=== PATIENT | female | born 1995 | race Caucasian/White ===

== ENCOUNTER 2018-01-31 08:54 | Day surgery (SDC) | payer OTHER, SELFPAY ==
[2018-01-28 10:38] VITALS: BMI 19.6
[2018-01-31] VITALS (10 sets, daily range): BP systolic 106–133; BP diastolic 62–87; PULSE 71–112; RESP 12–20; TEMP 36.1–36.9; O2SAT 94–100; BMI 19.6
--- NOTE | 2018-01-31 | PATH_ITS ---
[facility] Accession Number: [id number] . 01 Material submitted: . RIGHT OVARIAN CYST . 01 Clinical history: . CYST . 02 Diagnosis: Specimen Designated Right Ovarian Cyst: Multiple fragments of ovarian tissue with large cystic hemorrhagic corpus luteum. Small multiple follicular cysts, negative for atypia. MRV/02/04/2018 . 02 Electronically signed: . Joseph Chairez MD, Pathologist NPI- [id number] . 01 Gross description: . Received in formalin, labeled 1-Right ovarian cyst, are multiple fragments of reddy-white solid firm and partially membranous tissue (5.2 x 3.0 x 0.5 cm in aggregate). Entirely submitted in cassettes A1 and A2. ([id number]) . /[facility] . 02 Pathologist provided ICD-10: N83.11 . 02 CPT . 805161 Performed at: 01 [facility] [address], [place], [place] [id number] MD Adarsh Sher MD Phone: [phone] Performed at: [address] [facility] [address] [place], [place] [id number] MD João Grijalva MD Phone: [phone]
[2018-01-31] MEDS: LACTATED RINGERS 1,000 ML 100 ML IV ×2 (09:28→10:41)
--- NOTE | 2018-01-31 09:45 | PM.GYNHP.1 ---
History of Present Illness Narrative: Lana Looney is a 22 year old 0 who presents for a diagnostic laparoscopy with possible fulguration of endometriosis secondary to severe dysmenorrhea [facility] Medical History Anemia (Acute) Anxiety (Acute) Depression (Acute) Dyspareunia (Acute) Gastric ulcer (Acute) Kidney stones (Acute) PTSD (post-traumatic stress disorder) (Acute) Seasonal allergies (Acute) [place] teeth extracted (Acute) Surgical History Status post colonoscopy Status post endoscopy Family History Brother Age: 23 Type 1 diabetes Father Age: 47 High cholesterol Grandfather Age: 74 Parkinson's disease Grandfather Age: 74 Cancer Social History marital status: Single household members: family Smoking Status: Never smoker alcohol intake: never Meds Home Medications Medication Instructions Recorded Confirmed Type cholecalciferol (vitamin D3) 50,000 unit PO QWEEK #0 06/07/17 01/31/18 History clonazepam 0.5 mg PO DIRECTED 01/31/18 01/31/18 History oxycodone-acetaminophen [Percocet] 1 tab PO Q4HP PRN 01/31/18 01/31/18 History Generic Name Dose Route Start Last Admin Trade Name Freq PRN Reason Stop Dose Admin Fentanyl 50 mcg 01/31/18 09:16 Sublimaze IV Q5MIN PRN Moderate Pain Hydromorphone HCl 0.5 mg 01/31/18 09:16 Dilaudid IV Q5MIN PRN Moderate Pain Lactated Ringer's 1,000 mls @ 100 mls/hr 01/31/18 09:15 01/31/18 09:28 Lactated Ringers IV 100 mls/hr CONT STEVAN Administration Meperidine HCl 25 mg 01/31/18 09:16 Demerol IV NOW PRN Moderate pain or shivering Meperidine HCl 25 mg 01/31/18 09:16 Demerol IV Q5MIN PRN Pain and shivering Oxycodone/Acetaminophen 1 tab 01/31/18 09:16 Percocet 5/325 PO Q30MIN PRN Mild or moderate pain Allergies Allergy/AdvReac Type Severity Reaction Status Date / Time No Known Drug Allergies Allergy Verified 01/31/18 09:29 Exam Vital Signs (past 8 hours): Vital Signs - 8 hr 01/31/18 09:09 Temperature 97.3 F L Pulse Rate 83 Respiratory Rate 16 Blood Pressure 113/74 Pulse Oximetry 100 Temperature 97.3 F Pulse Rate 83 Respiratory Rate 16 Blood Pressure 113/74 Pulse Oximetry 100 Oxygen Delivery Method Room Air Narrative Exam Narrative: Generally: A well-developed, well-nourished white female, no acute distress Lungs: Clear to auscultation bilaterally Cardiovascular: Regular rate and rhythm Abdomen: Soft, flat, good bowel sounds. No scars. No hepatosplenomegaly. No masses palpable. External genitalia: Normal labia minora and majora. Normal urethral meatus. Normal Bartholin's and [place]'s glands. Vagina: Normal Cervix: Nulliparous Bimanual exam: 6 week size anteverted uterus. No adnexal masses or tenderness. She does have tenderness along the uterosacral ligaments bilaterally. Assessment & Plan (1) Severe dysmenorrhea: Problem details: Assessment: 22-year-old 0 with severe dysmenorrhea Plan: Diagnostic laparoscopy with possible fulguration of endometriosis. The risks, benefits, and alternatives to the procedure were explained to the patient. The risks including bleeding, infection, injury to the bowel, bladder, or ureters. She understands these risks and agrees to proceed. A full capital P AR-Q was held and consent form was signed Current visit: Yes Status: Acute
--- NOTE | 2018-01-31 09:48 | P.HPOB_ITS ---
History of Present Illness Narrative: Lana Looney is a 22 year old 0 who presents for a diagnostic laparoscopy with possible fulguration of endometriosis secondary to severe dysmenorrhea [facility] Medical History Anemia (Acute) Anxiety (Acute) Depression (Acute) Dyspareunia (Acute) Gastric ulcer (Acute) Kidney stones (Acute) PTSD (post-traumatic stress disorder) (Acute) Seasonal allergies (Acute) [place] teeth extracted (Acute) Surgical History Status post colonoscopy Status post endoscopy Family History Brother Age: 23 Type 1 diabetes Father Age: 47 High cholesterol Grandfather Age: 74 Parkinson's disease Grandfather Age: 74 Cancer Social History marital status: Single household members: family Smoking Status: Never smoker alcohol intake: never Meds Home Medications Medication Instructions Recorded Confirmed Type cholecalciferol (vitamin D3) 50,000 unit PO QWEEK #0 06/07/17 01/31/18 History clonazepam 0.5 mg PO DIRECTED 01/31/18 01/31/18 History oxycodone-acetaminophen [Percocet] 1 tab PO Q4HP PRN 01/31/18 01/31/18 History Generic Name Dose Route Start Last Admin Trade Name Freq PRN Reason Stop Dose Admin Fentanyl 50 mcg 01/31/18 09:16 Sublimaze IV Q5MIN PRN Moderate Pain Hydromorphone HCl 0.5 mg 01/31/18 09:16 Dilaudid IV Q5MIN PRN Moderate Pain Lactated Ringer's 1,000 mls @ 100 mls/hr 01/31/18 09:15 01/31/18 09:28 Lactated Ringers IV 100 mls/hr CONT STEVAN Administration Meperidine HCl 25 mg 01/31/18 09:16 Demerol IV NOW PRN Moderate pain or shivering Meperidine HCl 25 mg 01/31/18 09:16 Demerol IV Q5MIN PRN Pain and shivering Oxycodone/Acetaminophen 1 tab 01/31/18 09:16 Percocet 5/325 PO Q30MIN PRN Mild or moderate pain Allergies Allergy/AdvReac Type Severity Reaction Status Date / Time No Known Drug Allergies Allergy Verified 01/31/18 09:29 Exam Vital Signs (past 8 hours): Vital Signs - 8 hr 01/31/18 09:09 Temperature 97.3 F L Pulse Rate 83 Respiratory Rate 16 Blood Pressure 113/74 Pulse Oximetry 100 Temperature 97.3 F Pulse Rate 83 Respiratory Rate 16 Blood Pressure 113/74 Pulse Oximetry 100 Oxygen Delivery Method Room Air Narrative Exam Narrative: Generally: A well-developed, well-nourished white female, no acute distress Lungs: Clear to auscultation bilaterally Cardiovascular: Regular rate and rhythm Abdomen: Soft, flat, good bowel sounds. No scars. No hepatosplenomegaly. No masses palpable. External genitalia: Normal labia minora and majora. Normal urethral meatus. Normal Bartholin's and [place]'s glands. Vagina: Normal Cervix: Nulliparous Bimanual exam: 6 week size anteverted uterus. No adnexal masses or tenderness. She does have tenderness along the uterosacral ligaments bilaterally. Assessment & Plan (1) Severe dysmenorrhea: Problem details: Assessment: 22-year-old 0 with severe dysmenorrhea Plan: Diagnostic laparoscopy with possible fulguration of endometriosis. The risks, benefits, and alternatives to the procedure were explained to the patient. The risks including bleeding, infection, injury to the bowel, bladder , or ureters. She understands these risks and agrees to proceed. A full capital P AR-Q was held and consent form was signed Current visit: Yes Status: Acute
[2018-01-31] MEDS: MIDAZOLAM 2 MG/2 ML VIAL IV (09:58)
[2018-01-31] MEDS: BUPIVACAINE 0.5% W/ EPI (PF) 30 ML VIAL INJ (10:24)
[2018-01-31] MEDS: fentaNYL 100 MCG/2 ML INJ 50 MCG IV ×3 (11:40→12:00)
[2018-01-31] MEDS: HYDROMORPHONE 0.5 MG SYRINGE IV (11:50)
[2018-01-31] MEDS: ONDANSETRON 4 MG/2 ML INJ IV (11:50)
[2018-01-31] MEDS: LORazepam 2 MG/ML SYRINGE 1 MG IV ×2 (11:51→11:56)
--- NOTE | 2018-01-31 11:54 | PM.PREOP ---
Pre-operative Note Interval Note Changes to the H&P: History and physical exam performed today. Pre-op Check: History & Physical Reviewed and Exam Performed
--- NOTE | 2018-01-31 13:11 | SUR.PHASEII ---
Report rec'd from ACCREDITED PHARMACY TECHNICIAN, multiple pain medications given in PACU along with Ativan for anxiety. Pt tearful, reports anxiety and states pain is 8/10 despite pain medications given in the PACU. Pt assessed, able to talk through some of the anxiety, baseline Phase II VS obtained and she is running a HR in low 110's d/t anxitey. Parents brought to the bedside, anxiety appeared to subside slightly, Mother gave Lana a snack and Percocet One tab was given in phase II. No nausea at this time, wounds checked, rafy pad checked and Pt will be able to discharge home soon.
--- NOTE | 2018-01-31 13:51 | SUR.PHASEII ---
1345: Pt up at bedside with Mother whom is assisting Pt to get dressed. Pt c/o increased pain with moving and dressing. Pt instructed on splinting for pain relief and encouraged use of prescription pain medications ordered by Dr Elaine. 1353: Pt up in BR with Mother, discharge instructions reviewed while Pt up in WC and all questions were answered. Pt escorted out to private vehicle with parents. Pt/family to set up post op appointment with Dr Elaine.
--- NOTE | 2018-02-18 20:52 | PM.GYNOP.1 ---
Operative Date/Time/Diagnoses - Date of procedure: 01/31/18 Time of procedure: 13:00 Pre-op diagnosis: Pelvic pain Severe dysmenorrhea Post-op diagnosis: same Procedure: Procedures Diagnostic laparoscopy Lysis of adhesions Fulguration of endometriosis Bore holes in the ovaries Excision of right ovarian endometrioma Operation Date: 01/31/18 10:15 Actual Procedures Side Surgeon p Laparoscopic Fulguration Endometriosis, Right Ovarian Cystectomy, BILATERAL OVARIAN DRILLING Lysis of Adhesions Not Applicable Kim Elaine MD Indications: Severe dysmenorrhea Pelvic pain Surgeon: Kim Elaine Anesthesia Type: General Operative Notes Findings: 6 week size anteverted uterus Endometriosis in bilateral ovarian fossa Left colon to pelvic sidewall adhesions Approximately 35 endometriotic lesion Polycystic ovaries bilaterally Large endometrioma on the right ovary Normal liver and gallbladder Normal appendix Closure Type: primary Specimen(s): none Estimated blood loss (mL): 5 Blood products transfused: none Procedure in detail: After informed consent was obtained, the patient was taken to the operating room where she was placed in the dorsal supine position. After adequate general endotracheal anesthesia was achieved, she was placed in the dorsal lithotomy position, and prepped and draped in the usual sterile fashion. A time-out was performed. A bivalve speculum was placed into the vagina, and the anterior lip of the cervix grasped with a single-tooth tenaculum. The cervical os was sequentially dilated until the Zumi uterine manipulator could pass easily into the endometrial cavity. The single-tooth tenaculum was removed from the anterior lip of the cervix, the bivalve speculum was removed from the vagina. Attention was then turned to the abdomen where 6 cc of 0.5% Marcaine with epinephrine were injected in the umbilical fold. A 5 mm incision was made. A Veress needle was placed into the peritoneal cavity, and its placement confirmed by aspiration and drop test. The abdominal cavity was insufflated with 4.1 L of CO2. The Veress needle was removed, and a 5 mm trocar was placed without difficulty. Additional inspection of the pelvis and abdomen revealed the upper abdomen findings as above. A 2nd incision was placed midway between the pubic symphysis and umbilicus on the left side after 6 cc of 0.5% Marcaine with epinephrine were injected. A 5 mm trocar was placed under direct visualization. A probe was used to identify both tubes and ovaries. There was a large endometrioma on the right ovary and a large endometriotic implant on the surface of the ovary. Both tubes appeared normal. There were endometriotic implants in the ovarian fossa bilaterally. There were adhesions between the left colon and the sidewall. There were endometriotic lesions in the anterior and posterior cul-de-sacs. A 3rd incision was placed above the pubic symphysis after 6 cc of 0.5% Marcaine with epinephrine were injected. A 3rd 5 mm trocar was placed. Using the J hook cautery, the endometriotic implants were cauterized. Care was taken to avoid the ureters. The right utero-ovarian ligament was grasped with an atraumatic grasper, an endometrioma was excised using the PlasmaKinetic was settings at 40 w. the J-hook was used to bore holes into the right ovary due to polycystic ovaries. The bore holes were repeated on the patient's left ovary. The J-hook was used to cauterize endometriotic implants on the left ovary. The Endo filomena were used to take down adhesions between the left colon and the pelvic sidewall, with care to avoid the ureters. The pelvis was copiously irrigated with warm normal saline. No bleeding was noted. The instruments were removed from the abdomen. The CO2 was allowed to escape. The incisions were repaired with 4 0 undyed Vicryl in a subcuticular fashion. Steri-Strips, 2 x 2, and op site were placed. The Zumi uterine manipulator was removed from the uterus. Sponge, lap, and instrument counts were correct x2. The patient tolerated the procedure well, was taken to PACU in stable condition. Complications: none Post-operative Condition: stable Disposition: PACU Plan for aftercare: To home after recovery
== END 2018-01-31 14:02 | disposition home or self-care (01) ==
PROVIDERS: Family Provider Family Medicine; PCP Family Medicine; Visit Provider Obstetrics & Gynecology
PROC: 0U5B4ZZ Destruction of Endometrium, Percutaneous Endoscopic Approach (ICD-10-PCS; CPT 58662; principal; 2018-01-31 10:15)
DX: N80.1 Endometriosis of ovary (principal); D50.9 Iron deficiency anemia, unspecified; F41.9 Anxiety disorder, unspecified; E28.2 Polycystic ovarian syndrome; N73.6 Female pelvic peritoneal adhesions (postinfective); N83.11 Corpus luteum cyst of right ovary
CPT/HCPCS: 58662; 58999; J1100; J1170; J2060; J2250; J2405; J2704; J3010

== ENCOUNTER 2020-07-19 13:00 | Outpatient (RCR) | payer OTHER, SELFPAY ==
--- NOTE | 2020-05-10 09:25 | PT.OIE ---
Current Diagnoses Vaginismus (05/04/20) Past Medical History (Last Reviewed 01/31/18 @ 09:45 by Kim Elaine MD) Anemia (Acute) Anxiety (Acute) Depression (Acute) Dyspareunia (Acute) Gastric ulcer (Acute) Kidney stones (Acute) PTSD (post-traumatic stress disorder) (Acute) Seasonal allergies (Acute) Past Surgical History (Last Updated 02/18/18 @ 15:27 by Luz Elena Rivas LPN) History of third molar tooth extraction (Deleted) S/P laparoscopic procedure (Resolved 01/31/18) Status post colonoscopy Status post endoscopy [place] teeth extracted (Acute) Visit Care Team Role Provider Type Cindy Haile DO Family Provider Non-Staff Primary Care Provider Specialty: Family Practice Address: [address], [place], [address] Email: JAZZY [place] Attending Provider Non-Staff Referring Provider Specialty: Nursing Address: [address] [place] [address], [place], [address] Email: Physical Therapy Initial Evaluation PT-OP-A Visit Information Start: 05/04/20 11:21 Freq: Status: Active Protocol: Document 05/04/20 15:45 [facility] (Rec: 05/04/20 16:02 [facility] [id number]) Out-Patient Physical Therapy Visit Information Visit Information Visit Type Initial Evaluation Visit Start Time 11:15 Visit Stop Time 12:00 Total Visit Minutes 45 Visit Number 1 Evaluation Information Evaluation Date 05/04/20 PT-OP-B Current Condition Start: 05/04/20 11:21 Freq: Status: Active Protocol: Document 05/04/20 15:45 [facility] (Rec: 05/04/20 16:02 [facility] [id number]) Current Condition History of Current Condition Onset Date Age 14 Current Complaints pelvic and abdominal pain and tightness History of Current Condition Lana is a 25 year old female who presents to PT with complaints of a chronic history of abdominal and pelvic pain and tightness. She has been diagnosed with endometriosis and underwent a laproscopic surgery with ablation 2 years ago. She is currently awaiting a second laproscopic surgery but this is not until December of 2020. Her complaints of pain started around 14 years of age with cramping and painful ovulation as well as pain in her lower abdominal wall. She has tried a low dose of control pills however this brought on depression with her so she is managing her symptoms at this point with diet and exercise. She describes painful intercourse, painful bowel movements, and pain with a full bladder. She has past medical history of a bleeding stomach ulcer so she is careful not to take any Ibuprofen. Treatment Goals Patient/Caregiver Goals Pt's goals are to reduce pain in her abdominal wall and pelvic floor, decrease pain intercourse and with bowel movements. PT-OP-C Subjective Start: 05/04/20 11:21 Freq: Status: Active Protocol: Document 05/04/20 15:45 [facility] (Rec: 05/04/20 16:02 [facility] [id number]) OP-PT Pain Assessment Pain Assessment Grid Paper Pain Assessment Grid Completed Yes Location diaphragm Pain Location Details pain in the diaphragm bilaterally distal to the rib cage Intensity 5 Scale Used Numeric (0 - 10) Description Spasm suprapubic region Pain Location Details pain in the suprapubic region Intensity 8 Scale Used Numeric (0 - 10) Comments Pain Comments pt describes her pain in the diaphragm region as tightness and she wonders if she has adhesions in this region PT-OP-I Pelvic Floor Start: 05/04/20 11:21 Freq: Status: Active Protocol: Document 05/04/20 15:45 [facility] (Rec: 05/04/20 16:02 [facility] [id number]) Pelvic Floor Assessment Urine Pelvic Floor Surgery No Other Urinary Symptoms Lana describes pain with a full bladder, no c/o leakage Pelvic Clock Pelvic Clock 12-3 Guarding Pelvic Clock 3-6 Guarding,Hypertonic Pelvic Clock 6-9 Guarding,Hypertonic Pelvic Clock 9-12 Guarding Contraction Ability Voluntary Contraction Moderate Voluntary Relaxation Weak Manual Muscle Testing Left 4 Manual Muscle Testing Right 4 Manual Muscle Testing Anterior 4 Manual Muscle Testing Posterior 4 Muscle Endurance (Seconds) 5 Comments Pelvic Floor Comments Lana has a strong pelvic floor contraction however she has difficulty relaxing her pelvic floor following a pelvic floor contraction. She is guarded and hypertonic especially from 3-6 and 6-9 on the pelvic clock. PT-OP-J Posture/Palpation/Skin Start: 05/04/20 11:21 Freq: Status: Active Protocol: Document 05/04/20 11:15 [facility] (Rec: 05/05/20 09:31 [facility] [id number]) Palpation Assessment Location pelvic clock Palpation Location pelvic clock Palpation Findings Muscle Guarding,Tenderness Palpation Details tenderness in all areas of the pelvic clock with guarding from 3-6 and 6-9 iliopsoas musculature Palpation Location tightness in bilateral iliopsoas proximal attachments Palpation Findings Soft Tissue Tightness suprapubic fascia Palpation Location subrapubic fascia Palpation Findings Soft Tissue Tightness,Muscle Guarding Palpation Details restricted tissue tightness of the suprapubic fascia PT-OP-Q Treatments Start: 05/04/20 11:21 Freq: Status: Active Protocol: Document 05/04/20 15:45 [facility] (Rec: 05/04/20 16:07 [facility] [id number]) Therapeutic Exercises Supine Exercises 2 Supine Exercise Name happy baby stretch 1 Supine Exercise Name diaphragmatic breathing instruction Comments pt educated on pelvic rhythm Manual Therapy Treatment Soft Tissue Mobilization 1 Body Location ILU self massage instruction Mobilization Type Myofascial Release PT-OP-T Assessment and Plan Start: 05/04/20 11:21 Freq: Status: Active Protocol: Document 05/04/20 11:15 [facility] (Rec: 05/05/20 09:33 [facility] [id number]) Physical Therapy Assessment Goals Three Impairment Hypertonicity of the levator ani musculature Aniline Press Worker Goal (LTG) With stretches, manual therapy techniques, EMG biofeedback for pelvic floor down training, Lana is able to improved the resting tone of her pelvic floor reducing overall tightness and spasm LTG Duration 8 weeks + Two Impairment Lana describes pain with a full bladder Retirement Goal (LTG) Lana is able to delay voiding to every 2.5 to 3 hours during the day with overall decreased c/o bladder pain LTG Duration 8 weeks One Impairment pelvic and abdominal pain rated 6-8/10 Aniline Press Worker Goal (LTG) Lana is educated in a home program with specific stretches for the pelvic floor , breathing techniques to relax the abdominal wall and improve diaphragm and pelvic rhythm, and self massage techniques for the abdominal wall. LTG Duration 8 weeks Assessment Summary Assessment Lana presents to physical therapy today with complaints of pelvic pain and lower abdominal pain. She reports increased pain with intercourse, bowel movements, and pain with a full bladder. Lana has a history of abdominal and pelvic pain that began when she started her menstrual cycle at age 14. She has been diagnosed with endometriosis and underwent a laproscopic surgery with ablation 2 years ago. She is scheduled for a additional surgery next December 2020. Her goals with Pt are to decrease pain and to learn new ways to decrease her pain without medication. She has a history of a bleeding ulcer and reports she is trying to avoid taking IBU for pain. With examination today Lana was very guarded and hypertonic in the levator ani musculature. She has trigger points in the lateral harrison from 3-6 and 6-9 on the pelvic clock. She is also guarded in the suprapubic fascia and surrounding the diaphragm. She was educated today in self massage for the abdominal wall and diaphragmatic breathing exercises. Lana is a good candidate for PT Physical Therapy Plan Frequency and Duration Frequency of Treatment 1x/Week Duration of Treatment 8 Plan of Care Start Date 05/04/20 Plan of Care End Date 06/29/20 Therapeutic Interventions Therapeutic Interventions Home Exercise Program,Manual Therapy,Neuromuscular Re- education,Patient/Caregiver Education,Self-Care/Home Management,Therapeutic Exercises Modalities Biofeedback Next Visit Focus/Plan Next Note Type Treatment Note Next Visit Plan Review diaphragmatic breathing and self abdominal massage, begin adding in stretches to address pelvic pain, MFR to the suprapubic fascia and posterior pelvic floor.
--- NOTE | 2020-05-10 09:27 | PT.OPPOC ---
Physical, Occupational & Speech Therapy At [facility] Current Diagnoses Vaginismus (05/04/20) Visit Care Team Role Provider Type Cindy Haile DO Family Provider Non-Staff Primary Care Provider Specialty: Family Practice Address: [address], [place], [address] Email: JAZZY Boston Attending Provider Non-Staff Referring Provider Specialty: Nursing Address: [address], [place], [address] Email: Plan Of Care PT-OP-T Assessment and Plan Start: 05/04/20 11:21 Freq: Status: Active Protocol: Document 05/04/20 11:15 [facility] (Rec: 05/05/20 09:33 [facility] [id number]) Physical Therapy Assessment Goals Three Impairment Hypertonicity of the levator ani musculature Longterm Goal (LTG) With stretches, manual therapy techniques, EMG biofeedback for pelvic floor down training, Lana is able to improved the resting tone of her pelvic floor reducing overall tightness and spasm LTG Duration 8 weeks + Two Impairment Lana describes pain with a full bladder Longterm Goal (LTG) Lana is able to delay voiding to every 2.5 to 3 hours during the day with overall decreased c/o bladder pain LTG Duration 8 weeks One Impairment pelvic and abdominal pain rated 6-8/10 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 LTG Duration 8 weeks Assessment Summary Assessment Lana presents to physical therapy today with complaints of pelvic pain and lower abdominal pain. She reports increased pain with intercourse, bowel movements, and pain with a full bladder. Lana has a history of abdominal and pelvic pain that began when she started her menstrual cycle at age 14. She has been diagnosed with endometriosis and underwent a laproscopic surgery with ablation 2 years ago. She is scheduled for a additional surgery next December 2020. Her goals with PT are to decrease pain and to learn new ways to decrease her pain without medication. She has a history of a bleeding ulcer and reports she is trying to avoid taking IBU for pain. With examination today Lana was very guarded and hypertonic in the levator ani musculature. She has trigger points in the lateral harrison from 3-6 and 6-9 on the pelvic clock. She is also guarded in the suprapubic fascia and surrounding the diaphragm. She was educated today in self massage for the abdominal wall and diaphragmatic breathing exercises. Lana is a good candidate for PT Physical Therapy Plan Frequency and Duration Frequency of Treatment 1x/Week Duration of Treatment 8 Plan of Care Start Date 05/04/20 Plan of Care End Date 06/29/20 Therapeutic Interventions Therapeutic Interventions Home Exercise Program,Manual Therapy,Neuromuscular Re- education,Patient/Caregiver Education,Self-Care/Home Management,Therapeutic Exercises Modalities Biofeedback Next Visit Focus/Plan Next Note Type Treatment Note Next Visit Plan Review diaphragmatic breathing and self abdominal massage, begin adding in stretches to address pelvic pain, MFR to the suprapubic fascia and posterior pelvic floor. Plan of Care Dates Plan of Care Start Date 05/04/20 Plan of Care End Date 06/29/20 Electronically Signed by: Daria Gong, PT 05/10/20 0954 Please Sign and Return: I have reviewed this Plan of Care and certify that the skilled therapy services above are required to meet the patient?s needs. Physician Signature Date Printed Name and Credentials Clinical Instructor Signature Printed Name and Credentials
--- NOTE | 2020-05-12 11:35 | PT.OTN ---
Current Diagnoses Vaginismus (05/12/20) Physical Therapy Treatment Note PT-OP-A Visit Information Start: 05/04/20 11:21 Freq: Status: Active Protocol: Document 05/12/20 11:26 [facility] (Rec: 05/12/20 11:35 [facility] [id number]) Out-Patient Physical Therapy Visit Information Visit Information Visit Type Treatment Note Visit Start Time 09:00 Visit Stop Time 09:45 Total Visit Minutes 45 Visit Number 2 PT-OP-B Current Condition Start: 05/04/20 11:21 Freq: Status: Active Protocol: Document 05/04/20 15:45 [facility] (Rec: 05/04/20 16:02 [facility] [id number]) Current Condition History of Current Condition Onset Date Age 14 Current Complaints pelvic and abdominal pain and tightness History of Current Condition Lana is a 25 year old female who presents to PT with complaints of a chronic hisotry of abdominal and pelvic pain and tightness. She has been diagnosed with endometriosis and underwent a laproscopic surgery with ablation 2 years ago. She is currently awaiting a second laproscopic surgery but this is not until December of 2020. Her complaints of pain started around 14 years of age with cramping and painful ovulation as well as pain in her lower abdominal wall. She has tried a low dose of control pills however this brought on depression with her so she is managing her symptoms at this point with diet and exercise. She describes painful intercourse, painful bowel movements, and pain with a full bladder. She has past medical history of a bleeding stomach ulcer so she is careful not to take any Ibuprofen. Treatment Goals Patient/Caregiver Goals Pt's goals are to reduce pain in her abdominal wall and pelvic floor, decrease pain intercourse and with bowel movements. PT-OP-C Subjective Start: 05/04/20 11:21 Freq: Status: Active Protocol: Document 05/12/20 11:26 [facility] (Rec: 05/12/20 11:35 [facility] [id number]) OP-PT Subjective Patient Comments Patient Comments Lana reports she has been working on her diaphragmatic breathing and happy baby stretch. She also notes she can tell that she keeps her gluteal muscles tight in standing positions PT-OP-I Pelvic Floor Start: 05/04/20 11:21 Freq: Status: Active Protocol: Document 05/04/20 15:45 [facility] (Rec: 05/04/20 16:02 [facility] [id number]) Pelvic Floor Assessment Urine Pelvic Floor Surgery No Other Urinary Symptoms Lana describes pain with a full bladder, no c/o leakage Pelvic Clock Pelvic Clock 12-3 Guarding Pelvic Clock 3-6 Guarding,Hypertonic Pelvic Clock 6-9 Guarding,Hypertonic Pelvic Clock 9-12 Guarding Contraction Ability Voluntary Contraction Moderate Voluntary Relaxation Weak Manual Muscle Testing Left 4 Manual Muscle Testing Right 4 Manual Muscle Testing Anterior 4 Manual Muscle Testing Posterior 4 Muscle Endurance (Seconds) 5 Comments Pelvic Floor Comments Lana has a strong pelvic floor contraction however she has difficulty relaxing her pelvic floor following a pelvic floor contraction. She is guarded and hypertonic especially from 3-6 and 6-9 on the pelvic clock. PT-OP-J Posture/Palpation/Skin Start: 05/04/20 11:21 Freq: Status: Active Protocol: Document 05/04/20 11:15 [facility] (Rec: 05/05/20 09:31 [facility] [id number]) Palpation Assessment Location pelvic clock Palpation Location pelvic clock Palpation Findings Muscle Guarding,Tenderness Palpation Details tenderness in all areas of the pelvic clock with guarding from 3-6 and 6-9 iliopsoas musculature Palpation Location tightness in bilateral iliopsoas proximal attachments Palpation Findings Soft Tissue Tightness suprapubic fascia Palpation Location subrapubic fascia Palpation Findings Soft Tissue Tightness,Muscle Guarding Palpation Details restricted tissue tightness of the suprapubic fascia PT-OP-Q Treatments Start: 05/04/20 11:21 Freq: Status: Active Protocol: Document 05/12/20 11:26 [facility] (Rec: 05/12/20 11:35 [facility] [id number]) Therapeutic Exercises Supine Exercises 4 Supine Exercise Name supine over ball stretch Comments to stretch the abdominal wall and suprapubic fascia 3 Supine Exercise Name supine stretch over the foam roll Comments to open up the anterior chest and decrease tightness in the diaphragm 2 Supine Exercise Name happy baby stretch 1 Supine Exercise Name diaphragmatic breathing instruction Comments pt educated on pelvic rythym Manual Therapy Treatment Soft Tissue Mobilization 3 Body Location manual release under the right side of the diaphragm 2 Body Location visceral mobilizations for the bladder 1 Body Location abdominal massage over the colon and abdominal fascia Body Position Hooklying PT-OP-T Assessment and Plan Start: 05/04/20 11:21 Freq: Status: Active Protocol: Document 05/12/20 11:26 [facility] (Rec: 05/12/20 11:35 [facility] [id number]) Physical Therapy Assessment Assessment Summary Assessment Lana did feel quite a bit of pectoralis tightness with the foam roll. She was educated on how postural tightness can be contributing to pain in her abdominal wall and pelvic floor. She demonstrated good ability to perform diaphragmatic breathing, right side of the disphragm is tighter than the left side. Physical Therapy Plan Next Visit Focus/Plan Next Note Type Treatment Note Next Visit Plan Begin working on pelvic floor relaxation with manual therapy techniques and EMG biofeedback for resting tone of the pelvic floor
--- NOTE | 2020-05-26 17:02 | PT.OTN ---
Current Diagnoses Vaginismus (05/26/20) Physical Therapy Treatment Note PT-OP-A Visit Information Start: 05/04/20 11:21 Freq: Status: Active Protocol: Document 05/26/20 10:30 [facility] (Rec: 05/26/20 10:34 [facility] [id number]) Out-Patient Physical Therapy Visit Information Visit Information Visit Type Treatment Note Visit Start Time 10:30 Visit Stop Time 11:15 Total Visit Minutes 45 Visit Number 3 PT-OP-B Current Condition Start: 05/04/20 11:21 Freq: Status: Active Protocol: Document 05/04/20 15:45 [facility] (Rec: 05/04/20 16:02 [facility] [id number]) Current Condition History of Current Condition Onset Date Age 14 Current Complaints pelvic and abdominal pain and tightness History of Current Condition Lana is a 25 year old female who presents to PT with complaints of a chronic hisotry of abdominal and pelvic pain and tightness. She has been diagnosed with endometriosis and underwent a laproscopic surgery with ablation 2 years ago. She is currently awaiting a second laproscopic surgery but this is not until December of 2020. Her complaints of pain started around 14 years of age with cramping and painful ovulation as well as pain in her lower abdominal wall. She has tried a low dose of control pills however this brought on depression with her so she is managing her symptoms at this point with diet and exercise. She describes painful intercourse, painful bowel movements, and pain with a full bladder. She has past medical history of a bleeding stomach ulcer so she is careful not to take any Ibuprofen. Treatment Goals Patient/Caregiver Goals Pt's goals are to reduce pain in her abdominal wall and pelvic floor, decrease pain intercourse and with bowel movements. PT-OP-C Subjective Start: 05/04/20 11:21 Freq: Status: Active Protocol: Document 05/26/20 10:30 [facility] (Rec: 05/26/20 10:34 [facility] [id number]) OP-PT Subjective Patient Comments Patient Comments Has been doing the stretches, just had her cycle it ended yesterday. It was the best period she has had in a long time, the least amount of pain . She felt like she was actulally able to have some of her cycle on her pad and not just on the toilet. Patient Reported Progress Improving PT-OP-I Pelvic Floor Start: 05/04/20 11:21 Freq: Status: Active Protocol: Document 05/04/20 15:45 [facility] (Rec: 05/04/20 16:02 [facility] [id number]) Pelvic Floor Assessment Urine Pelvic Floor Surgery No Other Urinary Symptoms Lana describes pain with a full bladder, no c/o leakage Pelvic Clock Pelvic Clock 12-3 Guarding Pelvic Clock 3-6 Guarding,Hypertonic Pelvic Clock 6-9 Guarding,Hypertonic Pelvic Clock 9-12 Guarding Contraction Ability Voluntary Contraction Moderate Voluntary Relaxation Weak Manual Muscle Testing Left 4 Manual Muscle Testing Right 4 Manual Muscle Testing Anterior 4 Manual Muscle Testing Posterior 4 Muscle Endurance (Seconds) 5 Comments Pelvic Floor Comments Lana has a strong pelvic floor contraction however she has difficulty relaxing her pelvic floor following a pelvic floor contraction. She is guarded and hypertonic especially from 3-6 and 6-9 on the pelvic clock. PT-OP-J Posture/Palpation/Skin Start: 05/04/20 11:21 Freq: Status: Active Protocol: Document 05/04/20 11:15 [facility] (Rec: 05/05/20 09:31 [facility] [id number]) Palpation Assessment Location pelvic clock Palpation Location pelvic clock Palpation Findings Muscle Guarding,Tenderness Palpation Details tenderness in all areas of the pelvic clock with guarding from 3-6 and 6-9 iliopsoas musculature Palpation Location tightness in bilateral iliopsoas proximal attachments Palpation Findings Soft Tissue Tightness suprapubic fascia Palpation Location subrapubic fascia Palpation Findings Soft Tissue Tightness,Muscle Guarding Palpation Details restricted tissue tightness of the suprapubic fascia PT-OP-Q Treatments Start: 05/04/20 11:21 Freq: Status: Active Protocol: Document 05/26/20 16:54 [facility] (Rec: 05/26/20 17:01 [facility] [id number]) Manual Therapy Treatment Soft Tissue Mobilization levator ani release Body Location levator ani Comments release of the coccygeus and iliococcygeus bilaterally 3 Body Location manual release under the right side of the diaphragm 2 Body Location visceral mobilizations for the bladder 1 Body Location abdominal massage over the colon and abdominal fascia Body Position Hooklying Neuro Re-Education Treatment Other Activities EMG biofeedback Details EMG biofeedback Comments down training of the pelvic floor initiated today. Also tried roll outs to help with dropping the pelvic floor. Her resting tone was around a 4 but dropped as low as a 2 PT-OP-T Assessment and Plan Start: 05/04/20 11:21 Freq: Status: Active Protocol: Document 05/26/20 16:54 [facility] (Rec: 05/26/20 17:01 [facility] [id number]) Physical Therapy Assessment Assessment Summary Assessment Lana doing better and had a cycle that was not as painful. She has been working on her stretches. I initiated manual release on the pelvic floor today with pt consent. We also began EMG biofeedback for relaxed awareness of the pelvic floor. Lana tolerated this well. She had difficulty dropping below 3.5- 4 uv Physical Therapy Plan Frequency and Duration Frequency of Treatment 1x/Week Duration of Treatment 8 Plan of Care Start Date 05/04/20 Plan of Care End Date 06/29/20 Therapeutic Interventions Therapeutic Interventions Home Exercise Program,Manual Therapy,Neuromuscular Re- education,Patient/Caregiver Education,Self-Care/Home Management,Therapeutic Exercises Modalities Biofeedback Next Visit Focus/Plan Next Note Type Treatment Note Next Visit Plan continue working on pelvic floor relaxation with manual therapy techniques and EMG biofeedback for decreased resting tone of the pelvic floor.
--- NOTE | 2020-06-07 18:18 | PT.OTN ---
Current Diagnoses Vaginismus (06/07/20) Physical Therapy Treatment Note PT-OP-A Visit Information Start: 05/04/20 11:21 Freq: Status: Active Protocol: Document 06/07/20 18:08 [facility] (Rec: 06/07/20 18:16 [facility] [id number]) Out-Patient Physical Therapy Visit Information Visit Information Visit Type Treatment Note Visit Start Time 16:00 Visit Stop Time 16:45 Total Visit Minutes 45 Visit Number 4 PT-OP-B Current Condition Start: 05/04/20 11:21 Freq: Status: Active Protocol: Document 05/04/20 15:45 [facility] (Rec: 05/04/20 16:02 [facility] [id number]) Current Condition History of Current Condition Onset Date Age 14 Current Complaints pelvic and abdominal pain and tightness History of Current Condition Lana is a 25 year old female who presents to PT with complaints of a chronic hisotry of abdominal and pelvic pain and tightness. She has been diagnosed with endometriosis and underwent a laproscopic surgery with ablation 2 years ago. She is currently awaiting a second laproscopic surgery but this is not until December of 2020. Her complaints of pain started around 14 years of age with cramping and painful ovulation as well as pain in her lower abdominal wall. She has tried a low dose of control pills however this brought on depression with her so she is managing her symptoms at this point with diet and exercise. She describes painful intercourse, painful bowel movements, and pain with a full bladder. She has past medical history of a bleeding stomach ulcer so she is careful not to take any Ibuprofen. Treatment Goals Patient/Caregiver Goals Pt's goals are to reduce pain in her abdominal wall and pelvic floor, decrease pain intercourse and with bowel movements. PT-OP-C Subjective Start: 05/04/20 11:21 Freq: Status: Active Protocol: Document 06/07/20 16:12 [facility] (Rec: 06/07/20 16:15 [facility] [id number]) OP-PT Subjective Patient Comments Patient Comments Lana reports she was sore around her sacrum. following last visit. She has been really stressed this past week . SHe is moving and is getting her house on the market now. PT-OP-I Pelvic Floor Start: 05/04/20 11:21 Freq: Status: Active Protocol: Document 05/04/20 15:45 [facility] (Rec: 05/04/20 16:02 [facility] [id number]) Pelvic Floor Assessment Urine Pelvic Floor Surgery No Other Urinary Symptoms Lana describes pain with a full bladder, no c/o leakage Pelvic Clock Pelvic Clock 12-3 Guarding Pelvic Clock 3-6 Guarding,Hypertonic Pelvic Clock 6-9 Guarding,Hypertonic Pelvic Clock 9-12 Guarding Contraction Ability Voluntary Contraction Moderate Voluntary Relaxation Weak Manual Muscle Testing Left 4 Manual Muscle Testing Right 4 Manual Muscle Testing Anterior 4 Manual Muscle Testing Posterior 4 Muscle Endurance (Seconds) 5 Comments Pelvic Floor Comments Lana has a strong pelvic floor contraction however she has difficulty relaxing her pelvic floor following a pelvic floor contraction. She is guarded and hypertonic especially from 3-6 and 6-9 on the pelvic clock. PT-OP-J Posture/Palpation/Skin Start: 05/04/20 11:21 Freq: Status: Active Protocol: Document 05/04/20 11:15 [facility] (Rec: 05/05/20 09:31 [facility] [id number]) Palpation Assessment Location pelvic clock Palpation Location pelvic clock Palpation Findings Muscle Guarding,Tenderness Palpation Details tenderness in all areas of the pelvic clock with guarding from 3-6 and 6-9 iliopsoas musculature Palpation Location tightness in bilateral iliopsoas proximal attachments Palpation Findings Soft Tissue Tightness suprapubic fascia Palpation Location subrapubic fascia Palpation Findings Soft Tissue Tightness,Muscle Guarding Palpation Details restricted tissue tightness of the suprapubic fascia PT-OP-Q Treatments Start: 05/04/20 11:21 Freq: Status: Active Protocol: Document 06/07/20 18:08 [facility] (Rec: 06/07/20 18:16 [facility] [id number]) Therapeutic Exercises Standing Exercises standing adductor stretch Standing Exercise Name standing adductor stretch goddess pose Standing Exercise Name goddess pose Manual Therapy Treatment Soft Tissue Mobilization 3 Body Location manual release under the right side of the diaphragm 2 Body Location visceral mobilizations for the bladder 1 Body Location abdominal massage over the colon and abdominal fascia Body Position Hooklying Manual Techniques manual iliopsoas stretch Type manual iliopsoas stretch PT-OP-T Assessment and Plan Start: 05/04/20 11:21 Freq: Status: Active Protocol: Document 06/07/20 18:08 [facility] (Rec: 06/07/20 18:16 [facility] [id number]) Physical Therapy Assessment Assessment Summary Assessment Lana notes she is moving and is has been stressful for her this past week. She feels she holds tension in her muscles and can tell she is tighter this week Physical Therapy Plan Frequency and Duration Frequency of Treatment 1x/Week Duration of Treatment 8 Plan of Care Start Date 05/04/20 Plan of Care End Date 06/29/20 Therapeutic Interventions Therapeutic Interventions Home Exercise Program,Manual Therapy,Neuromuscular Re- education,Patient/Caregiver Education,Self-Care/Home Management,Therapeutic Exercises Modalities Biofeedback Next Visit Focus/Plan Next Note Type Treatment Note Next Visit Plan continue working on pelvic floor relaxation with manual therapy techniques and EMG biofeedback for decreased resting tone of the pelvic floor.
--- NOTE | 2020-06-28 17:06 | PT.OTN ---
Current Diagnoses Vaginismus (06/28/20) Physical Therapy Treatment Note PT-OP-A Visit Information Start: 05/04/20 11:21 Freq: Status: Active Protocol: Document 06/28/20 13:13 [facility] (Rec: 06/28/20 13:15 [facility] [id number]) Out-Patient Physical Therapy Visit Information Visit Information Visit Type Treatment Note Visit Start Time 13:05 Visit Stop Time 13:45 Total Visit Minutes 40 Visit Number 5 PT-OP-B Current Condition Start: 05/04/20 11:21 Freq: Status: Active Protocol: Document 05/04/20 15:45 [facility] (Rec: 05/04/20 16:02 [facility] [id number]) Current Condition History of Current Condition Onset Date Age 14 Current Complaints pelvic and abdominal pain and tightness History of Current Condition Lana is a 25 year old female who presents to PT with complaints of a chronic hisotry of abdominal and pelvic pain and tightness. She has been diagnosed with endometriosis and underwent a laproscopic surgery with ablation 2 years ago. She is currently awaiting a second laproscopic surgery but this is not until December of 2020. Her complaints of pain started around 14 years of age with cramping and painful ovulation as well as pain in her lower abdominal wall. She has tried a low dose of control pills however this brought on depression with her so she is managing her symptoms at this point with diet and exercise. She describes painful intercourse, painful bowel movements, and pain with a full bladder. She has past medical history of a bleeding stomach ulcer so she is careful not to take any Ibuprofen. Treatment Goals Patient/Caregiver Goals Pt's goals are to reduce pain in her abdominal wall and pelvic floor, decrease pain intercourse and with bowel movements. PT-OP-C Subjective Start: 05/04/20 11:21 Freq: Status: Active Protocol: Document 06/28/20 13:13 [facility] (Rec: 06/28/20 13:15 [facility] [id number]) OP-PT Subjective Patient Comments Patient Comments Lana reports her cycle started last week and was really painful. She missed about 5 days due to her pain. PT-OP-I Pelvic Floor Start: 05/04/20 11:21 Freq: Status: Active Protocol: Document 05/04/20 15:45 [facility] (Rec: 05/04/20 16:02 [facility] [id number]) Pelvic Floor Assessment Urine Pelvic Floor Surgery No Other Urinary Symptoms Lana describes pain with a full bladder, no c/o leakage Pelvic Clock Pelvic Clock 12-3 Guarding Pelvic Clock 3-6 Guarding,Hypertonic Pelvic Clock 6-9 Guarding,Hypertonic Pelvic Clock 9-12 Guarding Contraction Ability Voluntary Contraction Moderate Voluntary Relaxation Weak Manual Muscle Testing Left 4 Manual Muscle Testing Right 4 Manual Muscle Testing Anterior 4 Manual Muscle Testing Posterior 4 Muscle Endurance (Seconds) 5 Comments Pelvic Floor Comments Lana has a strong pelvic floor contraction however she has difficulty relaxing her pelvic floor following a pelvic floor contraction. She is guarded and hypertonic especially from 3-6 and 6-9 on the pelvic clock. PT-OP-J Posture/Palpation/Skin Start: 05/04/20 11:21 Freq: Status: Active Protocol: Document 05/04/20 11:15 [facility] (Rec: 05/05/20 09:31 [facility] [id number]) Palpation Assessment Location pelvic clock Palpation Location pelvic clock Palpation Findings Muscle Guarding,Tenderness Palpation Details tenderness in all areas of the pelvic clock with guarding from 3-6 and 6-9 iliopsoas musculature Palpation Location tightness in bilateral iliopsoas proximal attachments Palpation Findings Soft Tissue Tightness suprapubic fascia Palpation Location subrapubic fascia Palpation Findings Soft Tissue Tightness,Muscle Guarding Palpation Details restricted tissue tightness of the suprapubic fascia PT-OP-Q Treatments Start: 05/04/20 11:21 Freq: Status: Active Protocol: Document 06/28/20 17:03 [facility] (Rec: 06/28/20 17:06 [facility] [id number]) Therapeutic Exercises Supine Exercises 2 Supine Exercise Name happy baby stretch 1 Supine Exercise Name diaphragmatic breathing instruction Comments pt educated on pelvic rythym Other Exercises elizabeth pose Other Exercise Name elizabeth pose Reps/Minutes x 10 reps cat cow Other Exercise Name cat cow Reps/Minutes x 10 reps Manual Therapy Treatment Soft Tissue Mobilization 3 Body Location manual release under the right side of the diaphragm 2 Body Location visceral mobilizations for the bladder 1 Body Location abdominal massage over the colon and abdominal fascia Body Position Hooklying PT-OP-T Assessment and Plan Start: 05/04/20 11:21 Freq: Status: Active Protocol: Document 06/28/20 17:03 [facility] (Rec: 06/28/20 17:06 [facility] [id number]) Physical Therapy Assessment Assessment Summary Assessment Lana has one more visit scheduled. She would benefit from reviewing her EMG biofeedback next visit to look at the resting tone of her pelvic floor muscles. Physical Therapy Plan Frequency and Duration Frequency of Treatment 1x/Week Duration of Treatment 8 Plan of Care Start Date 05/04/20 Plan of Care End Date 06/29/20 Next Visit Focus/Plan Next Note Type Treatment Note Next Visit Plan revisit EMG biofeedback next visit to look at resting tone of the pelvic floor
--- NOTE | 2020-07-05 16:36 | PT.OPPN ---
Current Diagnoses Vaginismus (07/05/20) Physical Therapy Progress Note PT-OP-A Visit Information Start: 05/04/20 11:21 Freq: Status: Active Protocol: Document 07/05/20 13:02 [facility] (Rec: 07/05/20 13:04 [facility] [id number]) Out-Patient Physical Therapy Visit Information Visit Information Visit Type Progress Note Visit Start Time 13:03 Visit Stop Time 13:45 Total Visit Minutes 42 Visit Number 6 PT-OP-B Current Condition Start: 05/04/20 11:21 Freq: Status: Active Protocol: Document 05/04/20 15:45 [facility] (Rec: 05/04/20 16:02 [facility] [id number]) Current Condition History of Current Condition Onset Date Age 14 Current Complaints pelvic and abdominal pain and tightness History of Current Condition Lana is a 25 year old female who presents to PT with complaints of a chronic hisotry of abdominal and pelvic pain and tightness. She has been diagnosed with endometriosis and underwent a laproscopic surgery with ablation 2 years ago. She is currently awaiting a second laproscopic surgery but this is not until December of 2020. Her complaints of pain started around 14 years of age with cramping and painful ovulation as well as pain in her lower abdominal wall. She has tried a low dose of control pills however this brought on depression with her so she is managing her symptoms at this point with diet and exercise. She describes painful intercourse, painful bowel movements, and pain with a full bladder. She has past medical history of a bleeding stomach ulcer so she is careful not to take any Ibuprofen. Treatment Goals Patient/Caregiver Goals Pt's goals are to reduce pain in her abdominal wall and pelvic floor, decrease pain intercourse and with bowel movements. PT-OP-C Subjective Start: 05/04/20 11:21 Freq: Status: Active Protocol: Document 07/05/20 13:02 [facility] (Rec: 07/05/20 13:04 [facility] [id number]) OP-PT Subjective Patient Comments Patient Comments Lana reports she feels like she is ovulating this week and has low abdominal aching. She has been doing her stretching. PT-OP-I Pelvic Floor Start: 05/04/20 11:21 Freq: Status: Active Protocol: Document 07/05/20 16:35 [facility] (Rec: 07/05/20 16:36 [facility] [email or web address]) Pelvic Floor Assessment Contraction Ability Voluntary Contraction Moderate Voluntary Relaxation Weak Manual Muscle Testing Left 4 Manual Muscle Testing Right 4 Manual Muscle Testing Anterior 4 Manual Muscle Testing Posterior 4 Muscle Endurance (Seconds) 5 PT-OP-J Posture/Palpation/Skin Start: 05/04/20 11:21 Freq: Status: Active Protocol: Document 07/05/20 16:35 [facility] (Rec: 07/05/20 16:36 [facility] [email or web address]) Palpation Assessment Location pelvic clock Palpation Location pelvic clock Palpation Findings Muscle Guarding,Tenderness Palpation Details tenderness in all areas of the pelvic clock with guarding from 3-6 and 6-9 suprapubic fascia Palpation Location subrapubic fascia Palpation Findings Soft Tissue Tightness,Muscle Guarding Palpation Details restricted tissue tightness of the suprapubic fascia PT-OP-T Assessment and Plan Start: 05/04/20 11:21 Freq: Status: Active Protocol: Document 07/05/20 16:22 [facility] (Rec: 07/05/20 16:34 [facility] [email or web address]) Physical Therapy Assessment Goals Three Impairment Hypertonicity of the levator ani musculature Auto Parker Goal (LTG) With stretches, manual therapy techniques, EMG biofeedback for pelvic floor downtraining, Lana is able to improved the resting tone of her pelvic floor reducing overall tightness and spasm Lana is still showing guarding of the levator ani musculature. She was given a dilator for home trigger point release LTG Duration 8 weeks + Two Impairment Lana describes pain with a full bladder Auto Parker Goal (LTG) Lana is able to delay voiding to every 2.5 to 3 hours during the day with overall decreased c/o bladder pain Some progress LTG Duration 8 weeks One Impairment pelvic and abdominal pain rated 6-8/10 Half-Way Goal (LTG) Lana is educated in a home program with specific stretches for the pelvic floor , breathing techniques to relax the abdominal wall and improve diaphragm and pelvic rhythm, and self massage techniques for the abdominal wall. Lana has had a menstration cycle where she did better and did not feel as painful, she recently has had increase stress from moving home locations and it seems she is flared again with the stress. LTG Duration 8 weeks Assessment Summary Assessment Lana was given a dilator for home and instructed in how to do self release of the pelvic floor. She was elevated with her resting tone today at 5 uv initially. She did drop down some with breathing and contract relax. With internal release she was guarded in the illiococcygeus B Physical Therapy Plan Frequency and Duration Frequency of Treatment 1x/Week Duration of Treatment 8 Plan of Care Start Date 07/05/20 Plan of Care End Date 08/30/20 Therapeutic Interventions Therapeutic Interventions Home Exercise Program,Manual Therapy,Neuromuscular Re- education,Patient/Caregiver Education,Self-Care/Home Management,Therapeutic Exercises Modalities Biofeedback Next Visit Focus/Plan Next Note Type Treatment Note Next Visit Plan continue working on pelvic floor relaxation with manual therapy techniques and EMG biofeedback for decreased resting tone of the pelvic floor.
--- NOTE | 2020-07-05 16:36 | PT.OPPN ---
Current Diagnoses Vaginismus (07/05/20) Physical Therapy Progress Note PT-OP-A Visit Information Start: 05/04/20 11:21 Freq: Status: Active Protocol: Document 07/05/20 13:02 [facility] (Rec: 07/05/20 13:04 [facility] [id number]) Out-Patient Physical Therapy Visit Information Visit Information Visit Type Progress Note Visit Start Time 13:03 Visit Stop Time 13:45 Total Visit Minutes 42 Visit Number 6 PT-OP-B Current Condition Start: 05/04/20 11:21 Freq: Status: Active Protocol: Document 05/04/20 15:45 [facility] (Rec: 05/04/20 16:02 [facility] [id number]) Current Condition History of Current Condition Onset Date Age 14 Current Complaints pelvic and abdominal pain and tightness History of Current Condition Lana is a 25 year old female who presents to PT with complaints of a chronic hisotry of abdominal and pelvic pain and tightness. She has been diagnosed with endometriosis and underwent a laproscopic surgery with ablation 2 years ago. She is currently awaiting a second laproscopic surgery but this is not until December of 2020. Her complaints of pain started around 14 years of age with cramping and painful ovulation as well as pain in her lower abdominal wall. She has tried a low dose of control pills however this brought on depression with her so she is managing her symptoms at this point with diet and exercise. She describes painful intercourse, painful bowel movements, and pain with a full bladder. She has past medical history of a bleeding stomach ulcer so she is careful not to take any Ibuprofen. Treatment Goals Patient/Caregiver Goals Pt's goals are to reduce pain in her abdominal wall and pelvic floor, decrease pain intercourse and with bowel movements. PT-OP-C Subjective Start: 05/04/20 11:21 Freq: Status: Active Protocol: Document 07/05/20 13:02 [facility] (Rec: 07/05/20 13:04 [facility] [id number]) OP-PT Subjective Patient Comments Patient Comments Lana reports she feels like she is ovulating this week and has low abdominal aching. She has been doing her stretching. PT-OP-I Pelvic Floor Start: 05/04/20 11:21 Freq: Status: Active Protocol: Document 07/05/20 16:35 [facility] (Rec: 07/05/20 16:36 [facility] [email or web address]) Pelvic Floor Assessment Contraction Ability Voluntary Contraction Moderate Voluntary Relaxation Weak Manual Muscle Testing Left 4 Manual Muscle Testing Right 4 Manual Muscle Testing Anterior 4 Manual Muscle Testing Posterior 4 Muscle Endurance (Seconds) 5 PT-OP-J Posture/Palpation/Skin Start: 05/04/20 11:21 Freq: Status: Active Protocol: Document 07/05/20 16:35 [facility] (Rec: 07/05/20 16:36 [facility] [email or web address]) Palpation Assessment Location pelvic clock Palpation Location pelvic clock Palpation Findings Muscle Guarding,Tenderness Palpation Details tenderness in all areas of the pelvic clock with guarding from 3-6 and 6-9 suprapubic fascia Palpation Location subrapubic fascia Palpation Findings Soft Tissue Tightness,Muscle Guarding Palpation Details restricted tissue tightness of the suprapubic fascia PT-OP-T Assessment and Plan Start: 05/04/20 11:21 Freq: Status: Active Protocol: Document 07/05/20 16:22 [facility] (Rec: 07/05/20 16:34 [facility] [email or web address]) Physical Therapy Assessment Goals Three Impairment Hypertonicity of the levator ani musculature National Sales Manager Goal (LTG) With stretches, manual therapy techniques, EMG biofeedback for pelvic floor downtraining, Lana is able to improved the resting tone of her pelvic floor reducing overall tightness and spasm Lana is still showing guarding of the levator ani musculature. She was given a dilator for home trigger point release LTG Duration 8 weeks + Two Impairment Lana describes pain with a full bladder National Sales Manager Goal (LTG) Lana is able to delay voiding to every 2.5 to 3 hours during the day with overall decreased c/o bladder pain Some progress LTG Duration 8 weeks One Impairment pelvic and abdominal pain rated 6-8/10 Penitentiary Goal (LTG) Lana is educated in a home program with specific stretches for the pelvic floor , breathing techniques to relax the abdominal wall and improve diaphragm and pelvic rhythm, and self massage techniques for the abdominal wall. Lana has had a menstration cycle where she did better and did not feel as painful, she recently has had increase stress from moving home locations and it seems she is flared again with the stress. LTG Duration 8 weeks Assessment Summary Assessment Lana was given a dilator for home and instructed in how to do self release of the pelvic floor. She was elevated with her resting tone today at 5 uv initially. She did drop down some with breathing and contract relax. With internal release she was guarded in the illiococcygeus B Physical Therapy Plan Frequency and Duration Frequency of Treatment 1x/Week Duration of Treatment 8 Plan of Care Start Date 07/05/20 Plan of Care End Date 08/30/20 Therapeutic Interventions Therapeutic Interventions Home Exercise Program,Manual Therapy,Neuromuscular Re- education,Patient/Caregiver Education,Self-Care/Home Management,Therapeutic Exercises Modalities Biofeedback Next Visit Focus/Plan Next Note Type Treatment Note Next Visit Plan continue working on pelvic floor relaxation with manual therapy techniques and EMG biofeedback for decreased resting tone of the pelvic floor.
--- NOTE | 2020-07-05 16:36 | PT.OPPOC ---
Physical, Occupational & Speech Therapy At [facility] Current Diagnoses Vaginismus (07/05/20) Visit Care Team Role Provider Type Cindy Haile DO Family Provider Non-Staff Primary Care Provider Specialty: Family Practice Address: [address], [place], [address] Email: JAZZY [place] Attending Provider Non-Staff Referring Provider Specialty: Nursing [address], [place], [address] Email: Plan Of Care PT-OP-T Assessment and Plan Start: 05/04/20 11:21 Freq: Status: Active Protocol: Document 07/05/20 16:22 [facility] (Rec: 07/05/20 16:34 [facility] [email or web address]) Physical Therapy Assessment Goals Three Impairment Hypertonicity of the levator ani musculature Custodial Goal (LTG) With stretches, manual therapy techniques, EMG biofeedback for pelvic floor downtraining, Lana is able to improved the resting tone of her pelvic floor reducing overall tightness and spasm Lana is still showing guarding of the levator ani musculature. She was given a dilator for home trigger point release LTG Duration 8 weeks + Two Impairment Lana describes pain with a full bladder Le[employer] Purchase Truck Driver Goal (LTG) Lana is able to delay voiding to every 2.5 to 3 hours during the day with overall decreased c/o bladder pain Some progress LTG Duration 8 weeks One Impairment pelvic and abdominal pain rated 6-8/10 Custodial Goal (LTG) Lana is educated in a home program with specific stretches for the pelvic floor , breathing techniques to relax the abdominal wall and improve diaphragm and pelvic rhythm, and self massage techniques for the abdominal wall. Lana has had a menstration cycle where she did better and did not feel as painful, she recently has had increase stress from moving home locations and it seems she is flared again with the stress. LTG Duration 8 weeks Assessment Summary Assessment Lana was given a dilator for home and instructed in how to do self release of the pelvic floor. She was elevated with her resting tone today at 5 uv initially. She did drop down some with breathing and contract relax. With internal release she was guarded in the illiococcygeus B Physical Therapy Plan Frequency and Duration Frequency of Treatment 1x/Week Duration of Treatment 8 Plan of Care Start Date 07/05/20 Plan of Care End Date 08/30/20 Therapeutic Interventions Therapeutic Interventions Home Exercise Program,Manual Therapy,Neuromuscular Re- education,Patient/Caregiver Education,Self-Care/Home Management,Therapeutic Exercises Modalities Biofeedback Next Visit Focus/Plan Next Note Type Treatment Note Next Visit Plan continue working on pelvic floor relaxation with manual therapy techniques and EMG biofeedback for decreased resting tone of the pelvic floor. Plan of Care Dates Plan of Care Start Date 07/05/20 Plan of Care End Date 08/30/20 Electronically Signed by: Daria Gong, PT 07/05/20 0650 Please Sign and Return: I have reviewed this Plan of Care and certify that the skilled therapy services above are required to meet the patient?s needs. Physician Signature Date Printed Name and Credentials Clinical Instructor Signature Printed Name and Credentials
--- NOTE | 2020-07-12 14:00 | PT.OTN ---
Current Diagnoses Vaginismus (07/12/20) Physical Therapy Treatment Note PT-OP-A Visit Information Start: 05/04/20 11:21 Freq: Status: Active Protocol: Document 07/12/20 12:59 [facility] (Rec: 07/12/20 13:02 [facility] [id number]) Out-Patient Physical Therapy Visit Information Visit Information Visit Type Treatment Note Visit Start Time 13:00 Visit Stop Time 13:45 Total Visit Minutes 45 Visit Number 7 PT-OP-B Current Condition Start: 05/04/20 11:21 Freq: Status: Active Protocol: Document 05/04/20 15:45 [facility] (Rec: 05/04/20 16:02 [facility] [id number]) Current Condition History of Current Condition Onset Date Age 14 Current Complaints pelvic and abdominal pain and tightness History of Current Condition Lana is a 25 year old female who presents to PT with complaints of a chronic hisotry of abdominal and pelvic pain and tightness. She has been diagnosed with endometriosis and underwent a laproscopic surgery with ablation 2 years ago. She is currently awaiting a second laproscopic surgery but this is not until December of 2020. Her complaints of pain started around 14 years of age with cramping and painful ovulation as well as pain in her lower abdominal wall. She has tried a low dose of control pills however this brought on depression with her so she is managing her symptoms at this point with diet and exercise. She describes painful intercourse, painful bowel movements, and pain with a full bladder. She has past medical history of a bleeding stomach ulcer so she is careful not to take any Ibuprofen. Treatment Goals Patient/Caregiver Goals Pt's goals are to reduce pain in her abdominal wall and pelvic floor, decrease pain intercourse and with bowel movements. PT-OP-C Subjective Start: 05/04/20 11:21 Freq: Status: Active Protocol: Document 07/12/20 12:59 [facility] (Rec: 07/12/20 13:02 [facility] [id number]) OP-PT Subjective Patient Comments Patient Comments She has been using the dilator . She can tell on days when she is stressed more that she is more tight. PT-OP-I Pelvic Floor Start: 05/04/20 11:21 Freq: Status: Active Protocol: Document 07/05/20 16:35 [facility] (Rec: 07/05/20 16:36 [facility] [id number]) Pelvic Floor Assessment Contraction Ability Voluntary Contraction Moderate Voluntary Relaxation Weak Manual Muscle Testing Left 4 Manual Muscle Testing Right 4 Manual Muscle Testing Anterior 4 Manual Muscle Testing Posterior 4 Muscle Endurance (Seconds) 5 PT-OP-J Posture/Palpation/Skin Start: 05/04/20 11:21 Freq: Status: Active Protocol: Document 07/05/20 16:35 [facility] (Rec: 07/05/20 16:36 [facility] [email or web address]) Palpation Assessment Location pelvic clock Palpation Location pelvic clock Palpation Findings Muscle Guarding,Tenderness Palpation Details tenderness in all areas of the pelvic clock with guarding from 3-6 and 6-9 suprapubic fascia Palpation Location subrapubic fascia Palpation Findings Soft Tissue Tightness,Muscle Guarding Palpation Details restricted tissue tightness of the suprapubic fascia PT-OP-Q Treatments Start: 05/04/20 11:21 Freq: Status: Active Protocol: Document 07/12/20 13:51 [facility] (Rec: 07/12/20 14:00 [facility] [email or web address]) Manual Therapy Treatment Soft Tissue Mobilization levator ani release Body Location levator ani Comments release of the coccygeus and iliococcygeus bilaterally, 3 Body Location obturator internus manual release Comments right side trigger points in the obturator internus 2 Body Location visceral mobilizations for the bladder 1 Body Location abdominal massage over the colon and abdominal fascia Body Position Hooklying Neuro Re-Education Treatment Other Activities EMG biofeedback Details EMG biofeedback Comments down training of the pelvic floor. Also tried having Lana stretch into IR and this seemed to help with dropping the pelvic floor. Her resting tone was around a 3 but dropped as low as a 2 today. Average contraction on EMG biofeedback today is a 15 .2. She has no pain with 5 second hold and 10 second release PT-OP-T Assessment and Plan Start: 05/04/20 11:21 Freq: Status: Active Protocol: Document 07/12/20 13:51 [facility] (Rec: 07/12/20 14:00 [facility] [email or web address]) Physical Therapy Assessment Assessment Summary Assessment improved resting tone of the pelvic floor today on EMG biofeedback. Lana feels the dilator is helping her with trigger point release. She has one visit left in PT and will then be discharged to a [facility] Physical Therapy Plan Frequency and Duration Frequency of Treatment 1x/Week Duration of Treatment 8 Plan of Care Start Date 07/05/20 Plan of Care End Date 08/30/20 Therapeutic Interventions Therapeutic Interventions Home Exercise Program,Manual Therapy,Neuromuscular Re- education,Patient/Caregiver Education,Self-Care/Home Management,Therapeutic Exercises Modalities Biofeedback Next Visit Focus/Plan Next Note Type Treatment Note Next Visit Plan review all established exercises as this will be Ashins last visit. trigger point release for the levator ani and EMG biofeedback for down training of the pelvic floor.
--- NOTE | 2020-07-19 15:01 | PT.OTN ---
Current Diagnoses Vaginismus (07/19/20) Physical Therapy Treatment Note PT-OP-A Visit Information Start: 05/04/20 11:21 Freq: Status: Active Protocol: Document 07/19/20 14:55 [facility] (Rec: 07/19/20 15:01 [facility] [email or web address]) Out-Patient Physical Therapy Visit Information Visit Information Visit Type Treatment Note Visit Start Time 13:00 Visit Stop Time 13:45 Total Visit Minutes 45 Visit Number 8 PT-OP-B Current Condition Start: 05/04/20 11:21 Freq: Status: Active Protocol: Document 05/04/20 15:45 [facility] (Rec: 05/04/20 16:02 [facility] [id number]) Current Condition History of Current Condition Onset Date Age 14 Current Complaints pelvic and abdominal pain and tightness History of Current Condition Lana is a 25 year old female who presents to PT with complaints of a chronic hisotry of abdominal and pelvic pain and tightness. She has been diagnosed with endometriosis and underwent a laproscopic surgery with ablation 2 years ago. She is currently awaiting a second laproscopic surgery but this is not until December of 2020. Her complaints of pain started around 14 years of age with cramping and painful ovulation as well as pain in her lower abdominal wall. She has tried a low dose of control pills however this brought on depression with her so she is managing her symptoms at this point with diet and exercise. She describes painful intercourse, painful bowel movements, and pain with a full bladder. She has past medical history of a bleeding stomach ulcer so she is careful not to take any Ibuprofen. Treatment Goals Patient/Caregiver Goals Pt's goals are to reduce pain in her abdominal wall and pelvic floor, decrease pain intercourse and with bowel movements. PT-OP-C Subjective Start: 05/04/20 11:21 Freq: Status: Active Protocol: Document 07/19/20 13:04 [facility] (Rec: 07/19/20 13:05 [facility] [id number]) OP-PT Subjective Patient Comments Patient Comments could feel like she is getting the trigger points with the therawand. Patient Reported Progress Improving PT-OP-I Pelvic Floor Start: 05/04/20 11:21 Freq: Status: Active Protocol: Document 07/05/20 16:35 [facility] (Rec: 07/05/20 16:36 [facility] [email or web address]) Pelvic Floor Assessment Contraction Ability Voluntary Contraction Moderate Voluntary Relaxation Weak Manual Muscle Testing Left 4 Manual Muscle Testing Right 4 Manual Muscle Testing Anterior 4 Manual Muscle Testing Posterior 4 Muscle Endurance (Seconds) 5 PT-OP-J Posture/Palpation/Skin Start: 05/04/20 11:21 Freq: Status: Active Protocol: Document 07/05/20 16:35 [facility] (Rec: 07/05/20 16:36 [facility] [email or web address]) Palpation Assessment Location pelvic clock Palpation Location pelvic clock Palpation Findings Muscle Guarding,Tenderness Palpation Details tenderness in all areas of the pelvic clock with guarding from 3-6 and 6-9 suprapubic fascia Palpation Location subrapubic fascia Palpation Findings Soft Tissue Tightness,Muscle Guarding Palpation Details restricted tissue tightness of the suprapubic fascia PT-OP-Q Treatments Start: 05/04/20 11:21 Freq: Status: Active Protocol: Document 07/19/20 14:55 [facility] (Rec: 07/19/20 15:01 [facility] [email or web address]) Manual Therapy Treatment Soft Tissue Mobilization levator ani release Body Location levator ani Comments recheck of the levator ani today, left sided is much better and not as tight as it was, the right side is doing really well with no muscle guarding palpated 2 Body Location visceral mobilizations for the bladder 1 Body Location abdominal massage over the colon and abdominal fascia Body Position Hooklying Neuro Re-Education Treatment Other Activities EMG biofeedback Details EMG biofeedback Comments down training of the pelvic floor. Average contraction on EMG biofeedback today is a 15.0 She has no pain with 5 second hold and 10 second release but 10 second hold felt tightness in her pelvic floor. We dropped her back down to 5 second hold for home PT-OP-T Assessment and Plan Start: 05/04/20 11:21 Freq: Status: Active Protocol: Document 07/19/20 14:55 [facility] (Rec: 07/19/20 15:01 [facility] [email or web address]) Physical Therapy Assessment Goals Three Impairment Hypertonicity of the levator ani musculature Assisted Goal (LTG) With stretches, manual therapy techniques, EMG biofeedback for pelvic floor downtraining, Lana is able to improved the resting tone of her pelvic floor reducing overall tightness and spasm Lana is still showing guarding of the levator ani musculature. She was given a dilator for home trigger point release and this has helped her quite a bit. LTG Duration 8 weeks + Two Impairment Lana describes pain with a full bladder Assisted Goal (LTG) Lana is able to delay voiding to every 2.5 to 3 hours during the day with overall decreased c/o bladder pain Some progress LTG Duration 8 weeks One Impairment pelvic and abdominal pain rated 6-8/10 Safety Engineer Goal (LTG) Lana is educated in a home program with specific stretches for the pelvic floor , breathing techniques to relax the abdominal wall and improve diaphragm and pelvic rhythm, and self massage techniques for the abdominal wall. GOAL MET LTG Duration 8 weeks Assessment Summary Assessment Lana is independent with her HEP for stretching and is using the pelvic wand to help relax her pelvic floor now with good success. She will continue to work on her own until her surgery in September 2020. Physical Therapy Plan Discharge Physical Therapy Discharge Reasons No Longer Attending PT Discharge Comments DC PT at this time to a I HEP. Lana is out of insurance benefits and feels she can work on her own now at home with the tools she has been given
== END 2020-07-21 08:41 ==
LOC: PHYS 13:00
PROVIDERS: Family Provider Family Medicine; PCP Family Medicine; Referring Provider Registered Nurse; Visit Provider Registered Nurse
DX: N94.2 Vaginismus (principal)
CPT/HCPCS: 97110; 97112; 97140; 97161; 97535

== ENCOUNTER → 2024-10-16 07:36 | Outpatient (CLI) | payer SELFPAY ==
[2024-10-16 09:26] LABS: Urine N gonorrhoeae NOT DETECTED
[2024-10-16 09:33] LABS: Urine Chlamydia NOT DETECTED
== END ==
PROVIDERS: Family Provider Family Medicine; PCP Physician Assistant; Visit Provider Nurse Practitioner Family
DX: R30.0 Dysuria (principal); N94.89 Other specified conditions associated with female genital organs and menstrual cycle; Z11.3 Encounter for screening for infections with a predominantly sexual mode of transmission
CPT/HCPCS: 87086; 87210; 87491; 87591

== ENCOUNTER → 2024-11-25 14:15 | Outpatient (CLI) | payer BC, SELFPAY ==
[2024-11-25 20:12] LABS: Urine N gonorrhoeae NOT DETECTED
[2024-11-25 20:17] LABS: Urine Chlamydia NOT DETECTED
== END ==
PROVIDERS: Family Provider Family Medicine; Visit Provider Obstetrics & Gynecology
DX: R10.2 Pelvic and perineal pain (principal); G89.29 Other chronic pain; R30.0 Dysuria; Z87.42 Personal history of other diseases of the female genital tract
CPT/HCPCS: 87491; 87591

== ENCOUNTER → 2025-07-15 17:55 | Outpatient (CLI) | payer BC, SELFPAY | PROVIDERS: Family Provider Family Medicine; Visit Provider Chiropractor | DX: N89.8 Other specified noninflammatory disorders of vagina (principal); R39.15 Urgency of urination | CPT/HCPCS: 87086; 87147; 87210 ==

== ENCOUNTER 2025-08-08 02:01 | Emergency (ER) | payer BC, SELFPAY ==
[2025-08-08] VITALS (12 sets, daily range): BP systolic 99–124; BP diastolic 62–74; PULSE 61–81; RESP 18; TEMP 36.9–37.4; O2SAT 95–100; BMI 18.6
--- NOTE | 2025-08-08 02:13 | ED_ITS ---
HPI - Abdominal Pain
--- NOTE | 2025-08-08 02:13 | ED.ABDPAIN ---
HPI - Abdominal Pain General Chief Complaint: Abdominal Pain Stated Complaint: ab pain/ bladder pain Time Seen by Provider: 08/08/25 02:13 History of Present Illness HPI narrative: 30-year-old female with a history of endometriosis comes in with lower pelvic pain and nausea for the past 3 days. Patient is currently on doxycycline daily for the last 11 weeks due to perioral dermatitis. She denies any fever or chills. She was sexually active 1 time in the past 2 months that was protected. Should denies any vaginal discharge or irritation. She does feel like her bladder is full it has just completed treatment for a UTI 2 weeks ago. Her last menstrual period was approximately a week ago. Related Data Previous Rx's ?Medication ?Instructions ?Recorded ondansetron 8 mg disintegrating 8 mg PO Q8H PRN nausea and 11/25/24 tablet vomiting #10 tabs oxycodone 5 mg tablet 5 mg PO Q6H PRN pain #20 tabs 11/25/24 mupirocin 2 % topical ointment 1 applic topical TID #15 grams 06/03/25 triamcinolone acetonide 0.5 % 1 applic topical TID #15 grams 06/03/25 topical ointment Allergies Allergy/AdvReac Type Severity Reaction Status Date / Time No Known Drug Allergies Allergy Verified 08/08/25 02:13 Review of Systems Review of Systems ROS Unobtainable: All systems reviewed & are unremarkable except as noted in HPI and below Patient History Medical History (Updated 08/08/25 @ 06:16 by Bo Flores MD) Seasonal allergies Anemia Gastric ulcer Kidney stones PTSD (post-traumatic stress disorder) Depression Dyspareunia Anxiety Surgical History (Updated 02/18/18 @ 15:27 by Luz Elena Rivas LPN) S/P laparoscopic procedure (01/31/18) [place] teeth extracted Status post endoscopy History of third molar tooth extraction Status post colonoscopy Family History Brother Age: 31 Type 1 diabetes Father Age: 55 High cholesterol Grandfather Age: 82 Parkinson's disease Grandfather Age: 82 Cancer Social History household members: family Smoking Status: Never smoker alcohol intake: never Exam Narrative Exam Narrative: General: Patient appears to be in no acute distress, acting appropriately Head: normocephalic, atraumatic, HEENT: Pupils equal round reactive, eyes tracking well, neck supple, no JVD Heart: regular rate and rhythm, no murmurs, rubs, or gallops heard Lungs: clear to auscultation, no adventitious sounds Abdomen: soft , mildly tender suprapubic region, nondistended, positive bowel sounds Neurological: no focal neurological signs, moving all extremities well, alert and oriented x3, Psych: good judgment ,good insight, mood is normal. Initial Vital Signs Initial Vital Signs: Vital Signs Pulse Rate 81 08/08/25 02:07 Blood Pressure 124/74 08/08/25 02:07 Pulse Oximetry 99 08/08/25 02:07 Oxygen Delivery Method Room Air 08/08/25 02:07 Course Orders Ordered: ED Orders 08/08/25 02:07 Urine Microscopic Stat 08/08/25 02:36 Complete Blood Count AUTO DIFF Stat Comprehensive Metabolic Panel Stat Lipase Stat 08/08/25 02:39 US pelvic complete Stat 08/08/25 03:20 Chlamydia Gonorrhea PCR -URINE Stat Discontinued Medications Azithromycin (Azithromycin 250 Mg Tablet) 1,000 mg PO NOW ONE Stop: 08/08/25 05:45 Last Admin: 08/08/25 06:20 Dose: 1,000 mg Hydromorphone HCl (Hydromorphone Hcl 0.5 Mg/0.5 Ml Syringe) 0.5 mg IV NOW ONE Stop: 08/08/25 03:45 Last Admin: 08/08/25 03:48 Dose: 0.5 mg Documented By: GEOFF Hydromorphone HCl (Hydromorphone Hcl 0.5 Mg/0.5 Ml Syringe) 0.5 mg IV NOW ONE Stop: 08/08/25 04:42 Last Admin: 08/08/25 04:47 Dose: 0.5 mg Documented By: GEOFF Sodium Chloride (Normal Saline 0.9%) 1,000 mls @ 1,000 mls/hr IV BOLUS ONE Stop: 08/08/25 03:46 Last Admin: 08/08/25 02:55 Dose: 1,000 mls/hr Documented By: GEOFF Ceftriaxone Sodium 1,000 mg/ (Sodium Chloride) 100 mls @ 200 mls/hr IV NOW ONE Stop: 08/08/25 05:44 Last Admin: 08/08/25 06:21 Dose: 200 mls/hr Oxycodone HCl (Oxycodone Ir 5 Mg Tablet) 2.5 mg PO NOW ONE Stop: 08/08/25 02:45 Last Admin: 08/08/25 02:54 Dose: 2.5 mg Documented By: GEOFF Reevaluation(s) Reevaluation #1: Upon re-evaluation, patient's pain increased from pelvic us and needing more pain meds. Vital Signs Vital signs: Vital Signs - 8 hr 08/08/25 02:07 08/08/25 02:07 08/08/25 02:11 Temperature 99.3 F Pulse Rate 81 79 Respiratory Rate 18 Blood Pressure 124/74 124/74 Pulse Oximetry 99 99 Oxygen Delivery Method Room Air Room Air 08/08/25 02:30 08/08/25 03:00 08/08/25 04:50 Temperature Pulse Rate 68 67 61 Respiratory Rate Blood Pressure Pulse Oximetry 100 100 99 Oxygen Delivery Method Room Air Room Air Room Air 08/08/25 04:50 08/08/25 05:00 08/08/25 05:00 Temperature Pulse Rate 71 Respiratory Rate Blood Pressure 118/72 109/73 Pulse Oximetry 99 Oxygen Delivery Method Room Air 08/08/25 05:30 08/08/25 05:30 08/08/25 06:00 Temperature Pulse Rate 72 80 Respiratory Rate Blood Pressure 99/64 Pulse Oximetry 100 100 Oxygen Delivery Method Room Air Room Air 08/08/25 06:00 Temperature Pulse Rate Respiratory Rate Blood Pressure 102/65 Pulse Oximetry Oxygen Delivery Method MDM - Abdominal Pain Lab Data 08/08/25 02:36 08/08/25 02:36 Labs: Lab Results 08/08/25 08/08/25 08/08/25 Range/Units 02:07 02:36 03:20 WBC 5.8 (4.5-11.0) X10^3/uL RBC 4.21 (4.0-5.2) X10^6/uL Hgb 12.3 (12.0-16.0) g/dL Hct 37.0 (36-46) % MCV 87.9 (80-100) fL MCH 29.2 (26-34) PG MCHC 33.2 (30-36) % RDW 14.0 (11.6-14.8) % Plt Count 205 (150-400) X10^3/uL Neut % (Auto) 47.9 L (50-75) % Lymph % (Auto) 41.7 H (25-40) % [place] % (Auto) 7.0 (3-14) % Eos % (Auto) 2.3 (2-4) % Baso % (Auto) 1.1 (0-2) % Neut # (Auto) 2800 (7550-6166) /uL Lymph # (Auto) 2400 (3052-8934) /uL [place] # (Auto) 400 (0-900) /uL Eos # (Auto) 100 (0-450) /uL Baso # (Auto) 100 (0-100) /uL Sodium 140 (137-145) mmol/L Potassium 3.6 (3.4-5.1) mmol/L Chloride 105 (98-107) mmol/L Carbon Dioxide 25 (22-32) mmol/L BUN 10 (7-17) mg/dL Creatinine 0.69 (0.52-1.04) mg/dL Estimated GFR > 60 (>60) mL/min BUN/Creatinine Ratio 14.5 (6-22) Glucose 104 H (70-99) mg/dL Calcium 9.1 (8.4-10.2) mg/dL Total Bilirubin 0.2 (0.2-1.3) mg/dL AST 25 (14-36) IU/L ALT 11 (<35) IU/L Alkaline Phosphatase 51 (38-126) U/L Total Protein 7.5 (6.3-8.2) g/dL Albumin 4.4 (3.5-5.0) g/dL Globulin 3.1 (1.7-4.1) g/dL Albumin/Globulin Ratio 1.4 (1.0-2.8) Lipase 71 (23-300) U/L Urine RBC 0-1/hpf (0-5/HPF) Urine WBC 0-1/hpf (0-5/HPF) Ur Squamous Epith Cells 10-30 /hpf H (0-5/HPF) Urine Bacteria Many (>30) H (None) Ur Culture Indicated? Cult not indicated Vol Urine Centrifuged Low vol <10ml (spun) A Ur Chlamydia DNA (PCR) Not detected N gonorrhoeae DNA (PCR) Not detected Point of care testing: Point of Care Testing Test Results Negative Urine Dip Bedside Urine Glucose Negative Bedside Urine Bilirubin - Negative Bedside Urine Ketone - Negative Urine Specific [place] 1.015 Bedside Urine Occult Blood - Negative Bedside Urine pH 6.5 Bedside Urine Protein +/- 15 Bedside Urine Urobilinogen - Negative Bedside Urine Nitrite - Negative Bedside Urine Leukocytes - Negative Esterase Imaging Data pelvic us: Radiologist's Impression: 1. Question possible cervicitis. 2. Otherwise unremarkable. No air in torsion. No evidence of adenomyosis. Normal appearing ovaries. No endometrioma seen. MDM Narrative Medical decision making narrative: 30-year-old female with a history of endometriosis and multiple laparoscopies presents with suprapubic discomfort and a feeling of bladder fullness. UA did not point to a UTI but considering her symptoms went ahead and treated her with a g of Rocephin. Ultrasound of the pelvic region revealed a questionable potential cervicitis picture. The patient GC urine was negative but went ahead and treated her with the Rocephin and azithromycin considering her symptoms. Patient is still needing a gynecology specialist in endometriosis as a follow up. Advised to follow up sooner here in the ED for worsening or new symptoms. Discharge Plan Departure Patient Disposition: Home Clinical Impression: Cervicitis Instructions: DI for Acute Cervicitis Activity Restrictions/Additional Instructions: Medication given today to cover for potential lingering UTI versus STI causing inflammation of the cervix. Can not rule out endometriosis still. Please follow up with gynecology specialist in endometriosis if possible. Can follow up here in the ED sooner for pain not controlled or new symptoms. Prescriptions: No Action triamcinolone acetonide 0.5 % ointment 1 applic topical TID Qty: 15 0RF mupirocin 2 % ointment 1 applic topical TID Qty: 15 0RF oxycodone 5 mg tablet 5 mg PO Q6H PRN (Reason: pain) Qty: 20 0RF ondansetron 8 mg tablet,disintegrating 8 mg PO Q8H PRN (Reason: nausea and vomiting) Qty: 10 3RF Referrals: Miscellaneous,DoctorMD [Primary Care Provider, Medical] Stand Alone Forms: Patient Portal/API
--- NOTE | 2025-08-08 02:39 | DI.US.S_ITS ---
PROCEDURE: US PELVIC COMPLETE
[2025-08-08 02:51] LABS: Add Manual Diff / Slide Review NO; Hematocrit 37.0 % (36-46); Hemoglobin 12.3 g/dL (12.0-16.0); Lymphocytes Absolute Auto 2400 /uL (1100-4500); Mean Corpuscular HGB Conc 33.2 % (30-36); Mean Corpuscular Hemoglobin 29.2 PG (26-34); Mean Corpuscular Volume 87.9 fL (80-100); Platelet Count 205 X10^3/uL (150-400)
[2025-08-08] MEDS: SODIUM CHLORIDE 0.9% 1,000 ML 1000 ML IV (02:55)
[2025-08-08 02:57] LABS: Alanine Aminotransferase 11 IU/L (<35); Albumin 4.4 g/dL (3.5-5.0); Albumin Globulin Ratio 1.4 (1.0-2.8); Alkaline Phosphatase 51 U/L (38-126); Blood Urea Nitrogen 10 mg/dL (7-17); Calcium 9.1 mg/dL (8.4-10.2); Carbon Dioxide 25 mmol/L (22-32); Chloride 105 mmol/L (98-107); Estimated Glomerular Filt Rate > 60 mL/min (>60); Globulin 3.1 g/dL (1.7-4.1); Glucose 104 mg/dL (70-99); HEMOLYSIS < 15 (0-50); Lipase 71 U/L (23-300); Potassium 3.6 mmol/L (3.4-5.1); Sodium 140 mmol/L (137-145); Total Protein 7.5 g/dL (6.3-8.2)
[2025-08-08 03:21] LABS: Culture Indicated Urine Cult Not Indicated
[2025-08-08 05:01] LABS: Urine N gonorrhoeae NOT DETECTED
[2025-08-08 05:03] LABS: Urine Chlamydia NOT DETECTED
[2025-08-08] MEDS: AZITHROMYCIN 250 MG TABLET 1000 MG PO (06:20)
== END 2025-08-08 07:28 | disposition home or self-care (01) ==
PROVIDERS: Emergency Provider Family Medicine; Family Provider Family Medicine
DX: N72 Inflammatory disease of cervix uteri (principal)
CPT/HCPCS: 36415; 76830; 76856; 80053; 81003; 81015; 81025; 83690; 85025; 87491; 87591; 93975; 96361; 96365; 96375; 96376; 99284; J0696; J1171; J7030; J7050